=== PATIENT | male | born 1950 | race Caucasian/White ===

== ENCOUNTER → 2017-10-07 | Outpatient (CLI) | payer MEDICARE, OTHER ==
[2016-04-13 14:15] VITALS: BP 142/98
[~2017-10-07] MED LIST: ALLO300T PO; AMIT25TA PO; ASPI-630 PO; CALC-98 PO; CETI10TA16 PO; COLC0.6T34 PO; FISH12002 PO; FLUT9.9S NS; GABA600T2 PO; GLUC1CAP48 PO; MAGN400C PO; METF10002 PO; MULT-404 PO; OMEP40CA5 PO; SAW450CA7 PO; SIMV20TA3 PO; TRAM50TA PO; TRIA1TAB5 PO; VITA1TAB31 PO
--- NOTE | 2017-10-07 09:15 | RAD ---
Limited abdominal ultrasound 10/07/2017 Indication: Bulge along the anterior abdominal wall. Evaluate for hernia. Comparison study: None Discussion: Focused ultrasound evaluation of the intra-abdominal wall was performed. Static images are submitted to PACS. No evidence of hernia is seen. No other focal sonographic abnormalities are identified. No abnormal fluid collections or masses are appreciated provided imaging. Impression: No sonographic evidence of anterior abdominal hernia
== END | disposition home or self-care (01) ==
LOC: US 07:35
PROVIDERS: ATTEND Nurse Practitioner Family
DX: R10.84 Generalized abdominal pain (principal); K21.9 Gastro-esophageal reflux disease without esophagitis; I10 Essential (primary) hypertension; E11.9 Type 2 diabetes mellitus without complications; E78.00 Pure hypercholesterolemia, unspecified; Z87.891 Personal history of nicotine dependence
CPT/HCPCS: 76705

== ENCOUNTER → 2017-11-14 | Outpatient (CLI) | payer OTHER, MEDICARE ==
[2016-04-13 14:15] VITALS: BP 142/98
[~2017-11-14] MED LIST changes: +IOHEXOL 240 MG/ML 50ML VIAL. ONE; +IOHEXOL 240 MG/ML 50ML VIAL. PO ONE; +IOHEXOL 300 MG/ML 75 ML VIAL. IV ONE
[2017-11-14 09:01] LABS: CREATININE 1.2 mg/dL (0.7-1.3); GFR 60.8
--- NOTE | 2017-11-14 09:48 | RAD ---
PQRS Compliance Statement: One or more of the following individualized dose reduction techniques were utilized for this examination: 1. Automated exposure control 2. Adjustment of the mA and/or kV according to patient size 3. Use of iterative reconstruction technique CT abdomen with contrast 11/14/2017 INDICATION: Lump on right lateral side of abdomen and at the umbilicus. History of umbilical hernia surgeries and 2 inguinal hernia repairs. COMPARISON: CT abdomen/pelvis April 13, 2016. TECHNIQUE: Multiple axial CT images of the abdomen were obtained after the intravenous administration of 75 cc Omnipaque 300. Coronal and sagittal reformats are provided. FINDINGS: There is scarring and/or atelectasis in the lingula. Otherwise, lung bases are clear. There is hypoattenuation of the hepatic parenchyma suggestive of diffuse hepatic steatosis. Areas of higher attenuation along the gallbladder fossa are suggestive of focal fatty sparing. The spleen is nonenlarged. Adrenal glands are normal in appearance. Pancreas is normal. Gallbladder is present without adjacent inflammatory changes. The abdominal aorta is normal in course and caliber. There are no pathologically enlarged lymph nodes in the abdomen. There is no abdominal free fluid. There is no free intraperitoneal air. Mild atherosclerotic changes of the abdominal aorta are present. The kidneys enhance symmetrically. There is no suspicious renal mass. There is no hydronephrosis. There are no suspected calculi within the kidneys and proximal ureters. Oral contrast was administered. Opacified bowel loops demonstrate normal mucosal fold pattern. Small and large bowel are normal in caliber. There is no evidence for bowel obstruction. There are no pericolonic inflammatory changes. A normal, nondilated appendix is visualized without adjacent inflammatory changes. There is partial visualization of ventral hernia repair. No recurrent hernia is identified involving the visualized portions of the supraumbilical ventral abdomen. The umbilicus is not definitively visualized on this examination. No suspicious ventral abdominal masses are visualized. No suspicious osseous lesions are identified. IMPRESSION: There is partial profiling of ventral abdominal hernia repair changes. The umbilicus is not definitively visualized on this examination. No suspicious ventral abdominal masses are identified. If there is persistent clinical concern, targeted ultrasound may be of benefit. Electronically signed by: Brenda Truong MD (11/14/2017 9:45 AM) [id number]
== END | disposition home or self-care (01) ==
LOC: CT 07:39
PROVIDERS: ATTEND Nurse Practitioner Family
DX: R10.33 Periumbilical pain (principal); R10.84 Generalized abdominal pain; R10.13 Epigastric pain; I70.0 Atherosclerosis of aorta; E11.9 Type 2 diabetes mellitus without complications; E78.00 Pure hypercholesterolemia, unspecified; K21.9 Gastro-esophageal reflux disease without esophagitis; Z98.890 Other specified postprocedural states; Z87.891 Personal history of nicotine dependence
CPT/HCPCS: 36415; 74160; 82565; 84520; Q9966; Q9967